=== PATIENT | female | born 1990 | race Two or more races ===

== ENCOUNTER 2021-03-07 12:00 | Observation (INO) | payer BC, MEDICAID ==
[~2021-03-07] VITALS: Ht 154.9 cm; Wt 77.6 kg
[2021-03-07 13:32] LABS: BASOPHILS % 0.4 % (0.0-2.0); EOSINOPHILS % 1.5 % (0.0-5.0); HEMATOCRIT. 37.4 % (36.0-48.0); HEMOGLOBIN. 12.5 g/dL (12.0-16.0); LYMPHOCYTES % 20.7 % (20.0-50.0); MEAN CORPUSCULAR HEMOGLOBIN 29.2 pg (28.0-32.0); MEAN CORPUSCULAR VOLUME 87.5 fL (81.0-99.0); MEAN PLATELET VOLUME 9.7 fl (7.4-10.4); MONOCYTES % 6.5 % (2.0-8.0); NEUTROPHILS % 70.9 % (40.0-76.0); PLATELET 215 x1000/uL (130-400); RED BLOOD CELL COUNT 4.27 mill/uL (4.2-5.4); RED CELL DISTRIBUTION WIDTH 13.6 % (11.6-14.6)
[2021-03-07 13:39] LABS: CHLORIDE 110 mEq/L (98-107)
[2021-03-07 13:40] LABS: D-DIMER 0.63 mg/L FEU (<0.50); INR 0.9; PROTHROMBIN TIME 9.8 sec (9.6-11.0)
[2021-03-07 13:49] LABS: CLARITY URINE CLEAR (CLEAR); COLOR URINE YELLOW (YELLOW); KETONES URINE TRACE (NEGATIVE); LEUKOCYTE ESTERASE URINE TRACE (NEGATIVE); NITRITE URINE NEGATIVE (NEGATIVE); OCCULT BLOOD URINE NEGATIVE (NEGATIVE); PH URINE 5.5 (4.5-8.0); PROTEIN URINE TRACE (NEGATIVE); SPECIFIC GRAVITY URINE 1.029 (1.005-1.030); UROBILINOGEN URINE 0.2 E.U./dL (0.2-1.0)
[2021-03-07 14:19] LABS: PARTIAL THROMBOPLASTIN TIME 27.4 sec (23.4-31.0)
== END 2021-03-07 14:45 | disposition home or self-care (01) ==
LOC: 8 EST LDRP 12:00 → 8 EST A/PP 12:11
PROVIDERS: ADMIT Obstetrics & Gynecology; ATTEND Obstetrics & Gynecology
DX: O26.893 Other specified pregnancy related conditions, third trimester (principal); R03.0 Elevated blood-pressure reading, without diagnosis of hypertension; Z79.01 Long term (current) use of anticoagulants; Z3A.35 35 weeks gestation of pregnancy
CPT/HCPCS: 36415; 59025; 80053; 81003; 85025; 85379; 85610; 85730; G0378; 99281

== ENCOUNTER 2021-03-31 03:00 | Inpatient (IN) | payer BC, MEDICAID ==
[~2021-03-31] VITALS: Ht 154.9 cm; Wt 77.6 kg
[2021-03-31] MEDS ORDERED: METHYLERGONOVINE MALEATE 0.2 MG/ML IM PRN (04:00)
[2021-03-31] MEDS ORDERED: AMPICILLIN 2GM in NS 100ML 100 ML IV SCH (04:00)
[2021-03-31] MEDS ORDERED: LIDOCAINE HCL 1% 20ML VIAL (Pyxis) INJ INFIL SCH (04:00)
[2021-03-31] MEDS ORDERED: NALOXONE HCL 0.4 MG/ML 1ML VIAL IM PRN (04:00)
[2021-03-31] MEDS ORDERED: DEXT 5%/LR + PITOCIN 20UNITS/L 1,000 ML IV SCH (04:00)
[2021-03-31] MEDS ORDERED: CARBOPROST TROMETHAMINE 250 MCG/ML AMPUL IM PRN (04:00)
[2021-03-31] MEDS ORDERED: BUTORPHANOL TARTRATE 2 MG/ML VIAL IV PRN (04:00)
[2021-03-31] MEDS ORDERED: MISOPROSTOL 100MCG TABLET VG SCH (04:00)
[2021-03-31] MEDS ORDERED: LABETALOL HCL 5MG/ML VIAL 20ML IV PRN ×3 (04:15)
[2021-03-31] MEDS ORDERED: MAGNESIUM 4 G PREMIX 100 ML IV SCH (04:15)
[2021-03-31] MEDS ORDERED: HYDRALAZINE 20MG/ML VIAL IV PRN (04:15)
[2021-03-31] MEDS: MAGNESIUM 20 G PREMIX (L & D) 500 ML IV SCH ×2 (04:36→19:44)
[2021-03-31 04:47] LABS: CLARITY URINE CLOUDY (CLEAR); COLOR URINE YELLOW (YELLOW); KETONES URINE NEGATIVE (NEGATIVE); LEUKOCYTE ESTERASE URINE 1+ (NEGATIVE); NITRITE URINE NEGATIVE (NEGATIVE); OCCULT BLOOD URINE NEGATIVE (NEGATIVE); PROTEIN URINE 2+ (NEGATIVE); SPECIFIC GRAVITY URINE 1.015 (1.005-1.030); UROBILINOGEN URINE 0.2 E.U./dL (0.2-1.0)
[2021-03-31 04:48] LABS: BASOPHILS % 0.3 % (0.0-2.0); EOSINOPHILS % 1.8 % (0.0-5.0); HEMATOCRIT. 40.6 % (36.0-48.0); HEMOGLOBIN. 13.7 g/dL (12.0-16.0); LYMPHOCYTES % 33.1 % (20.0-50.0); MEAN CORPUSCULAR HEMOGLOBIN 29.5 pg (28.0-32.0); MEAN CORPUSCULAR VOLUME 87.3 fL (81.0-99.0); MEAN PLATELET VOLUME 10.8 fl (7.4-10.4); MONOCYTES % 6.7 % (2.0-8.0); NEUTROPHILS % 58.1 % (40.0-76.0); PLATELET 201 x1000/uL (130-400); RED BLOOD CELL COUNT 4.65 mill/uL (4.2-5.4); RED CELL DISTRIBUTION WIDTH 14.4 % (11.6-14.6)
[2021-03-31 04:52] LABS: CHLORIDE 108 mEq/L (98-107)
[2021-03-31 05:01] LABS: D-DIMER 0.93 mg/L FEU (<0.50); INR 0.9; PARTIAL THROMBOPLASTIN TIME 29.6 sec (23.4-31.0); PROTHROMBIN TIME 9.8 sec (9.6-11.0)
[2021-03-31 05:20] LABS: *BENZODIAZEPINES SCREEN URINE NEGATIVE (NEGATIVE); METHADONE URINE SCREEN NEGATIVE (NEGATIVE)
[2021-03-31 05:21] LABS: *AMPHETAMINES SCREEN URINE NEGATIVE (NEGATIVE); *BARBITURATES SCREEN URINE NEGATIVE (NEGATIVE); *COCAINE SCREEN URINE NEGATIVE (NEGATIVE); CANNABINOID URINE SCREEN NEGATIVE (NEGATIVE); OPIATES URINE SCREEN NEGATIVE (NEGATIVE); PHENCYCLIDINE URINE SCREEN NEGATIVE (NEGATIVE)
[2021-03-31 05:28] LABS: HEPATITIS B SURFACE ANTIGEN NEGATIVE
[2021-03-31] MEDS: MISOPROSTOL 100MCG TABLET VG PRN ×2 (05:40→10:02)
[2021-03-31] MEDS: LACTATED RINGERS 1,000 ML IV SCH ×3 (05:43→22:14)
[2021-03-31] MEDS ORDERED: MISOPROSTOL 200MCG TABLET VG SCH (05:45)
[2021-03-31] MEDS ORDERED: PREN1TAB78 PO (05:57)
[2021-03-31] MEDS ORDERED: FERR325T6 PO (05:57)
[2021-03-31] MEDS ORDERED: FOLIC ACID (05:57)
[2021-03-31] MEDS ORDERED: ROPIVACAINE HCL/PF EPIDURAL 200 ML EP SCH (07:45)
[2021-03-31] MEDS ORDERED: ROPIVACAINE HCL/PF EPIDURAL 200 ML EPI SCH (07:45)
[2021-03-31] MEDS ORDERED: LIDOCAINE HCL 2%/EPINEPHRINE 1:100,000 20 ML VIAL INFIL ONE (08:28)
[2021-03-31 08:54] LABS: BASOPHILS % 0.6 % (0.0-2.0); EOSINOPHILS % 0.8 % (0.0-5.0); HEMATOCRIT. 38.5 % (36.0-48.0); HEMOGLOBIN. 12.9 g/dL (12.0-16.0); LYMPHOCYTES % 20.5 % (20.0-50.0); MEAN CORPUSCULAR HEMOGLOBIN 29.3 pg (28.0-32.0); MEAN CORPUSCULAR VOLUME 87.1 fL (81.0-99.0); MEAN PLATELET VOLUME 10.1 fl (7.4-10.4); NEUTROPHILS % 72.1 % (40.0-76.0); PLATELET 176 x1000/uL (130-400); RED BLOOD CELL COUNT 4.42 mill/uL (4.2-5.4); RED CELL DISTRIBUTION WIDTH 14.5 % (11.6-14.6)
[2021-03-31 08:59] LABS: INR 0.9; PROTHROMBIN TIME 9.6 sec (9.6-11.0)
[2021-03-31] MEDS: AMPICILLIN 1,000 MG in SODIUM CHLORIDE 0.9% 50 ML IV SCH ×3 (11:34→23:15)
[2021-03-31] MEDS ORDERED: ROPIVACAINE HCL/PF EPIDURAL 200 ML EPI ONE (14:43)
[2021-03-31] MEDS ORDERED: FENTANYL CITRATE/PF 50MCG/ML 2ML VIAL ONE ×2 (14:43→19:15)
[2021-03-31] MEDS ORDERED: CITRIC ACID/SODIUM CITRATE SOLN 30ML UDC PO NR (19:15)
[2021-03-31] MEDS ORDERED: CEFAZOLIN SODIUM 1000MG/VIAL ONE (19:15)
[2021-03-31] MEDS ORDERED: OXYTOCIN 10 UNITS/ML 1ML ONE (19:15)
[2021-03-31] MEDS ORDERED: MORPHINE SULFATE/PF 1MG/ML 10ML AMP ONE (19:15)
[2021-04-01] VITALS (8 sets, daily range): BP systolic 104–141; BP diastolic 59–95
[2021-04-01] MEDS ORDERED: OXYCODONE HCL/ACETAMINOPHEN 5/325MG TABLET PO PRN (00:30)
[2021-04-01] MEDS ORDERED: DEXT 5%/LR + PITOCIN 20UNITS/L 1,000 ML IV SCH (00:30)
[2021-04-01] MEDS ORDERED: BENZOCAINE/LANOLIN/ALOE VERA SPRAY TOP PRN (00:30)
[2021-04-01] MEDS ORDERED: IBUPROFEN 400MG TABLET PO PRN (00:30)
[2021-04-01] MEDS ORDERED: RHO(D) IMMUNE GLOBULIN 300 MCG/SYR IM PRN (00:30)
[2021-04-01] MEDS ORDERED: LABETALOL HCL 300MG TABLET PO SCH (02:00)
[2021-04-01] MEDS ORDERED: MAGNESIUM 20 G PREMIX (L & D) 500 ML IV SCH ×2 (04:28→04:30)
[2021-04-01 06:23] LABS: BASOPHILS % 0.3 % (0.0-2.0); EOSINOPHILS % 0.1 % (0.0-5.0); HEMATOCRIT. 31.8 % (36.0-48.0); HEMOGLOBIN. 10.9 g/dL (12.0-16.0); LYMPHOCYTES % 10.9 % (20.0-50.0); MEAN CORPUSCULAR HEMOGLOBIN 29.8 pg (28.0-32.0); MEAN CORPUSCULAR VOLUME 86.7 fL (81.0-99.0); MEAN PLATELET VOLUME 10.2 fl (7.4-10.4); MONOCYTES % 6.4 % (2.0-8.0); NEUTROPHILS % 82.3 % (40.0-76.0); PLATELET 155 x1000/uL (130-400); RED BLOOD CELL COUNT 3.67 mill/uL (4.2-5.4); RED CELL DISTRIBUTION WIDTH 14.4 % (11.6-14.6)
[2021-04-01] MEDS: PRENATAL VIT/FE FUMARATE/FA TABLET PO SCH (08:33)
[2021-04-01] MEDS: LABETALOL HCL 100MG TABLET PO SCH ×2 (08:58→21:00)
[2021-04-01] MEDS: IBUPROFEN 800MG TABLET PO PRN (16:20)
[2021-04-02 04:30] VITALS: BP 134/72
[2021-04-02] MEDS ORDERED: TETANUS, DIPHTHERIA, PERTUSSIS VAC/PF 0.5ML (>10YR OLD) IM ONE (06:00)
[2021-04-02] MEDS ORDERED: INFLUENZA VACCINE 05/PF 0.5 ML SYRINGE IM ONE (06:00)
[2021-04-02] MEDS ORDERED: FERROUS SULFATE 325MG TABLET PO SCH (07:30)
[2021-04-02 07:50] VITALS: BP 134/79
[2021-04-02] MEDS ORDERED: IBUP-2030 PO (07:54)
[2021-04-02] MEDS: PRENATAL VIT/FE FUMARATE/FA TABLET PO SCH (07:58)
[2021-04-02] MEDS ORDERED: LANOLIN OINT 7GM TUBE TOP PRN (08:45)
[2021-04-02] MEDS: LABETALOL HCL 100MG TABLET PO SCH (09:00)
[2021-04-02] MEDS: IBUPROFEN 800MG TABLET PO PRN (11:09)
== END 2021-04-02 11:45 | disposition home or self-care (01) | DRG 807 ==
LOC: 8 EST LDRP 03:00 → OBSVTOIN 03:00 → 8EST 04-01 02:46
PROVIDERS: ADMIT Obstetrics & Gynecology; ATTEND Obstetrics & Gynecology
PROC: 10D07Z6 Extraction of Products of Conception, Vacuum, Via Natural or Artificial Opening (ICD-10-PCS; principal; 2021-04-01)
PROC: 0W8NXZZ Division of Female Perineum, External Approach (ICD-10-PCS; 2021-04-01)
PROC: 3E0R3BZ Introduction of Anesthetic Agent into Spinal Canal, Percutaneous Approach (ICD-10-PCS; 2021-04-01)
PROC: 00HU33Z Insertion of Infusion Device into Spinal Canal, Percutaneous Approach (ICD-10-PCS; 2021-04-01)
PROC: 3E0DXGC Introduction of Other Therapeutic Substance into Mouth and Pharynx, External Approach (ICD-10-PCS; 2021-04-01)
PROC: 3E033VJ Introduction of Other Hormone into Peripheral Vein, Percutaneous Approach (ICD-10-PCS; 2021-04-01)
DX: O13.4 Gestational [pregnancy-induced] hypertension without significant proteinuria, complicating childbirth (principal); Z37.0 Single live birth; O14.94 Unspecified pre-eclampsia, complicating childbirth; Z3A.38 38 weeks gestation of pregnancy; O69.1XX0 Labor and delivery complicated by cord around neck, with compression, not applicable or unspecified; O99.02 Anemia complicating childbirth; D64.9 Anemia, unspecified; Z20.822 Contact with and (suspected) exposure to COVID-19
CPT/HCPCS: 36415; 76805; 76818; 80053; 80305; 81003; 83735; 84550; 85025; 85379; 85384; 86592; 86703; 86762; 86850; 86900; 87340; 87426; 90686; 90715; J0290; J0690; J2274; J2590; J2795; J3010; J3475; J3490; J7120; A4315